=== PATIENT | male | born 1955 ===

== ENCOUNTER 2018-08-08 10:08 | Emergency (ER) | payer OTHER ==
[2018-08-08 10:18] VITALS: BMI 32.3
[2018-08-08] MEDS ORDERED: Morphine 2 mg/ml ISec IVP STA (10:43)
[2018-08-08] MEDS ORDERED: TDAP Vaccine 0.5 mL Syr IM ONE (10:44)
[2018-08-08] MEDS ORDERED: ceFAZolin IV 2 gm in 50 mL D5W IVPB ONE (10:45)
--- NOTE | 2018-08-08 10:58 | ED PDOC ---
Arrival/HPI - General Chief Complaint: Finger,Hand,&Wrist Time Seen by Provider: 08/08/18 10:47 Historian: Patient - History of Present Illness Narrative History of Present Illness (Text): 08/08/18 10:43 63 year old male, with no significant past medical history including htn, last tetanus more than 10 years ago, presents to the ED for evaluation of laceration/avulsion sustained to right 3rd digit prior to arrival x 1 hour. Golden ordoñez states he was at work when he trimmed/sliced his right 3rd digit while using a machine. Patient reports immediate bleeding and pain to the area but states appropriate ability to flex and extend the rt. hand 3rd digit. Patient denies any other associated somatic complaints. He denies any numbness/weakness to the area or any other complaints. Time/Duration: Prior to Arrival Symptom Onset: Sudden Activities at Onset: Light Context: Work Past Medical History - Provider Review Nursing Documentation Reviewed: Yes - Cardiac Hx Cardiac Disorders: Yes Hx Hypertension: Yes - Pulmonary Hx Respiratory Disorders: No - Neurological Hx Neurological Disorder: No - HEENT Hx HEENT Disorder: No - Renal Hx Renal Disorder: No - Endocrine/Metabolic Hx Endocrine Disorders: No - Hematological/Oncological Hx Blood Disorders: No - Integumentary Hx Dermatological Disorder: No - Musculoskeletal/Rheumatological Hx Musculoskeletal Disorders: No - Gastrointestinal Hx Gastrointestinal Disorders: No - Genitourinary/Gynecological Hx Genitourinary Disorders: No - Psychiatric Hx Psychophysiologic Disorder: No Hx Substance Use: No Family/Social History - Physician Review Nursing Documentation Reviewed: Yes Family/Social History: Unknown Family HX Smoking Status: Never Smoked Hx Alcohol Use: No Hx Substance Use: No Allergies/Home Meds Allergies/Adverse Reactions: Allergies No Known Allergies Allergy (Verified 08/08/18 10:18) Home Medications: Home Meds Medication Instructions Recorded Confirmed Losartan [Cozaar] 50 mg PO DAILY 08/08/18 08/08/18 amLODIPine [Norvasc] 5 mg PO DAILY 08/08/18 08/08/18 Review of Systems - Physician Review All systems were reviewed & negative as marked: Yes - Review of Systems Constitutional: absent: Fevers Eyes: absent: Vision Changes Respiratory: absent: SOB, Cough Cardiovascular: absent: Chest Pain, HOLLIS Gastrointestinal: absent: Abdominal Pain, Diarrhea, Nausea, Vomiting Genitourinary Male: absent: Dysuria, Urinary Output Changes Musculoskeletal: absent: Back Pain, Neck Pain Skin: Laceration (right 3rd digit avulsion finger pad). absent: Rash Neurological: absent: Headache, Dizziness Endocrine: absent: Diaphoresis Psychiatric: absent: Anxiety Physical Exam Vital Signs Reviewed: Yes Vital Signs Temp Pulse Resp BP Pulse Ox 08/08/18 10:30 98.4 F 72 18 187/84 H 98 Temperature: Afebrile Blood Pressure: Hypertensive Pulse: Regular Respiratory Rate: Normal Appearance: Positive for: Well-Appearing, Non-Toxic, Comfortable Pain Distress: Moderate Mental Status: Positive for: Alert and Oriented X 3 - Systems Exam Head: Present: Atraumatic, Normocephalic Pupils: Present: PERRL Extroacular Muscles: Present: EOMI Conjunctiva: Present: Normal Mouth: Present: Moist Mucous Membranes Neck: Present: Normal Range of Motion Respiratory/Chest: Present: Clear to Auscultation, Good Air Exchange. No: Respiratory Distress, Accessory Muscle Use Cardiovascular: Present: Regular Rate and Rhythm, Normal S1, S2. No: Murmurs Abdomen: No: Tenderness, Distention, Peritoneal Signs Back: Present: Normal Inspection Upper Extremity: Present: Normal Inspection, Other (Rt. hand 3rd digit finger pad avulsion noted approximately 2cm diameter with the subcutanteous fatty tissue involved, FROM without limitation, sensation intact, motor 5/5, limited neurological exam due to the loss of the finger pad for sensation test, +radial pulse, capillary refill< 2 seconds). No: Cyanosis, Edema Lower Extremity: Present: Normal Inspection. No: Edema Neurological: Present: GCS=15, CN II-XII Intact, Speech Normal Skin: Present: Warm, Dry, Normal Color. No: Rashes Psychiatric: Present: Alert, Oriented x 3, Normal Insight, Normal Concentration Medical Decision Making ED Course and Treatment: 08/08/18 10:43 - Hand Surgeon consult - Morphine - Ancef 2gm - TDAP - X-ray of Right Hand 08/08/18 11:07 -Discussed case with Dr. Almendarez, hand surgeon, who is aware and agrees with ED management plan, requests X-ray of the right hand to r/o any foreign body/fracture. 08/08/18 11:20 -ER xray: Soft tissue avulsion distal 3rd digit. No acute fracture. -I spoke to the hand surgeon, Dr. Almendarez, he will call me back. 08/08/18 12:10 -Dr. Almendarez called me back, that he recommend xerofoam gauze dressing to the finger, saline gauze covered the avulsed piece and ice pack hourly. I performed all of them. As per Dr. Almendarez, he will be here 6pm to do the bedside skin graft/laceration repair. Consult ordered. 08/08/18 19:08 -Dr. Almendarez is here, repair the laceration/skin grafted/splinted, recommend to discharge with keflex/percocet/motrin. -Discharge home with keflex/percocet for severe pain/motrin for mild to modera te, keep the splint on, see Dr. Almendarez as told by him in 1 week at [facility] as the business card he given you, return to the ER for any new or worsening signs or symptoms. - RAD Interpretation Radiology Orders: 08/08/18 10:43 HAND RIGHT 3RD DIGIT (FINGER) [RAD] Stat Date of service: 08/08/2018 PROCEDURE: Right middle finger radiographs. HISTORY: rt. hand 3rd digit avulsion, machine COMPARISON: None. TECHNIQUE: AP radiograph of the right hand, as well as spot oblique and lateral images of index finger were obtained. 3 views obtained. FINDINGS: RIGHT MIDDLE FINGER: No evidence of fracture. Remainder of the right hand (as seen on the AP view) grossly unremarkable. JOINTS: Normal. SOFT TISSUES: There is some soft tissue avulsion at the distal aspect of the 3rd distal phalanx. OTHER FINDINGS: None. IMPRESSION: Soft tissue avulsion distal 3rd digit. No acute fracture. Occupational Therapy Assistant: Radiologist - Medication Orders Current Medication Orders: Discontinued Medications Morphine Sulfate (Morphine) 2 mg IVP STAT STA Stop: 08/08/18 10:44 Tetanus/Reduced Diphtheria/Acell Pertussis (Boostrix Vaccine Inj) 0.5 ml IM .ONCE ONE Stop: 08/08/18 10:45 - PA / SIGNAL INTELLIGENCE/ELECTRONIC WARFARE / Resident Statement MD/DO has reviewed & agrees with the documentation as recorded. - Scribe Statement The provider has reviewed the documentation as recorded by the Scribe Sienna Dumont. All medical record entries made by the Scribe were at my direction and personally dictated by me. I have reviewed the chart and agree that the record accurately reflects my personal performance of the history, physical exam, medical decision making, and the department course for this patient. I have also personally directed, reviewed, and agree with the discharge instructions and disposition. Disposition/Present on Arrival - Present on Arrival Any Indicators Present on Arrival: No History of DVT/PE: No History of Uncontrolled Diabetes: No Urinary Catheter: No History of Decub. Ulcer: No History Surgical Site Infection Following: None - Disposition Have Diagnosis and Disposition been Completed?: Yes Diagnosis: Avulsion of finger Disposition: HOME/ ROUTINE Disposition Time: 19:10 Patient Plan: Discharge Condition: IMPROVED Additional Instructions: -Discharge home with keflex/percocet for severe pain/motrin for mild to moderate, keep the splint on, see Dr. Almendarez as told by him in 1 week at [facility] as the business card he given you, return to the ER for any new or worsening signs or symptoms. Prescriptions: Cephalexin [Keflex] 500 mg PO QID #40 capsule Ibuprofen [Motrin Tab] 600 mg PO QID PRN #30 tab PRN Reason: Other oxyCODONE/Acetaminophen [Percocet 5/325 mg Tab] 1 tab PO QID #15 tab Referrals: Gabriel Almendarez MD [Staff Provider] - Follow up with primary Forms: [facility] (Maltese), WORK NOTE
--- NOTE | 2018-08-08 11:56 | RAD ---
Date of service: 08/08/2018 PROCEDURE: Right middle finger radiographs. HISTORY: rt. hand 3rd digit avulsion, machine COMPARISON: None. TECHNIQUE: AP radiograph of the right hand, as well as spot oblique and lateral images of index finger were obtained. 3 views obtained. FINDINGS: RIGHT MIDDLE FINGER: No evidence of fracture. Remainder of the right hand (as seen on the AP view) grossly unremarkable. JOINTS: Normal. SOFT TISSUES: There is some soft tissue avulsion at the distal aspect of the 3rd distal phalanx. OTHER FINDINGS: None. IMPRESSION: Soft tissue avulsion distal 3rd digit. No acute fracture.
[2018-08-08] MEDS ORDERED: Bupivacaine 0.5% Inj(30mL) IJ STA (17:13)
[2018-08-08] MEDS ORDERED: Bupivacaine 0.5% Inj(30mL) ONE (17:22)
[2018-08-08 19:17] VITALS: TEMP 98.4
[2018-08-08 19:29] VITALS: BP 118/68; PULSE 67; RESP 18; O2SAT 100
== END 2018-08-08 19:25 | disposition home or self-care (01) ==
LOC: ED 10:08
DX: S61.302A Unspecified open wound of right middle finger with damage to nail, initial encounter (principal); W31.89XA Contact with other specified machinery, initial encounter; Y92.89 Other specified places as the place of occurrence of the external cause; Y99.0 Civilian activity done for income or pay; Z23 Encounter for immunization
CPT/HCPCS: 73140; 90471; 90715; 96374; 99285; J2270